=== PATIENT | male | born 2005 | race African-American/Black ===

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

== ENCOUNTER 2024-01-20 20:25 | Emergency (ER) | payer OTHER, SELFPAY ==
[2024-01-20 20:38] VITALS: BP 126/84; PULSE 87; TEMP 36.9; O2SAT 96; BMI 17.3
--- NOTE | 2024-01-20 20:47 | ED_ITS ---
HPI - URI/Sore Throat General Chief Complaint: Upper Respiratory Infection Stated Complaint: CP, DIFF BREATHING, SORE THROAT Time Seen by Provider: 01/20/24 20:28 Source: patient Limitations: no limitations History of Present Illness HPI Narrative: 18-year-old male presents for sore throat and cough. He has been coughing up some yellow phlegm and has had the symptoms for 3 or 4 days. His voice is hoarse as well. He has not had a known fever and has had no hemoptysis. Related Data Home Medications ?Medication ?Instructions ?Recorded ?Confirmed No Known Home Medications 09/07/23 09/07/23 Allergies Allergy/AdvReac Type Severity Reaction Status Date / Time No Known Drug Allergies Allergy Verified 01/20/24 20:38 Review of Systems ROS Narrative A ten point review of systems is negative except as noted above. PFSH PFSH Social History Little interest or pleasure in doing things: not at all Feeling down, depressed, or hopeless: not at all Exam Narrative Exam Narrative: Nurses note and vital signs reviewed and patient is not hypoxic. General: The patient appears well and in no apparent distress. Patient is resting comfortably on cart. Skin: Warm, dry, no pallor noted. There is no rash noted. Head: Normocephalic, atraumatic Eye: Normal conjunctiva, no drainage, EOMI. PERRL Ears, Nose, Mouth, and Throat: oral mucosa is moist. Nares patent. Mouth without vesicles. Minimal pharyngeal erythema without exudate or swelling. His voice is hoarse. Cardiovascular: Regular Rate and Rhythm Respiratory: Patient is in no distress, no accessory muscle use, lungs are clear to auscultation, no wheezing, rales or rhonchi Back: non-tender GI: Soft and nontender Musculoskeletal: No joint swelling Neurological: A&O Psychiatric: Cooperative Constitutional Vital Signs, click to edit/add: Last Vital Signs Temp 98.4 F 01/20/24 20:38 Pulse 87 01/20/24 20:38 Resp 20 01/20/24 20:38 BP 126/84 01/20/24 20:38 Pulse Ox 96 01/20/24 20:38 O2 Del Method Room Air 01/20/24 20:38 Course Vital Signs Vital signs: Vital Signs Temperature 98.4 F 01/20/24 20:38 Pulse Rate 87 01/20/24 20:38 Respiratory Rate 20 01/20/24 20:38 Blood Pressure 126/84 01/20/24 20:38 Pulse Oximetry 96 01/20/24 20:38 Oxygen Delivery Method Room Air 01/20/24 20:38 Temperature 98.4 F 01/20/24 20:38 Pulse Rate 87 01/20/24 20:38 Respiratory Rate 20 01/20/24 20:38 Blood Pressure 126/84 01/20/24 20:38 Pulse Oximetry 96 01/20/24 20:38 Oxygen Delivery Method Room Air 01/20/24 20:38 MDM - URI/Sore Throat MDM Narrative Medical decision making narrative: Strep, COVID, and influenza test are all negative. He was given IM Decadron. Antibiotic not indicated. Treatment diagnosis and follow-up were discussed with the patient. Lab Data Attestation: I reviewed the patient's lab results. Labs: Lab Results 01/20/24 Range/Units 21:00 Influenza Type A Ag Negative Influenza Type B Ag Negative SARS-CoV-2 Ag (CV2AG) Negative (NEGATIVE) Streptococcus Screen Negative Discharge Plan Discharge Chief Complaint: Upper Respiratory Infection Clinical Impression: Viral pharyngitis Patient Disposition: Home, Self-Care Time of Disposition Decision: 21:35 Condition: Good Mode of Transportation: Private Vehicle Prescriptions / Home Meds: No Action No Known Home Medications Print Language: Japanese Instructions: Pharyngitis (ED) Referrals: YOGI LIZAMA [Primary Care Provider] - 1 week
[2024-01-20 21:29] LABS: Influenza Virus A Antigen Negative; Influenza Virus B Antigen Negative; Internal Control Within Normal Limits; Strep A Antigen Screen Negative
[2024-01-20 21:30] LABS: Internal Control Within Normal Limits; SARS-CoV-2 Ag NEGATIVE (NEGATIVE)
[2024-01-20 21:42] VITALS: O2SAT 98
[2024-01-20] MEDS: DEXAMETHASONE SOD PHOS 10 MG/ML VIAL IM (21:45)
== END 2024-01-20 21:52 | disposition home or self-care (01) ==
PROVIDERS: Emergency Provider Emergency Medicine; PCP Family Medicine
DX: J02.9 Acute pharyngitis, unspecified (principal); Z20.822 Contact with and (suspected) exposure to COVID-19
CPT/HCPCS: 87070; 87804; 87811; 87880; 96372; 99284; J1100

== ENCOUNTER 2024-06-17 07:30 | Emergency (ER) | payer OTHER, SELFPAY ==
[2024-06-17 07:37] VITALS: BP 100/66; PULSE 78; TEMP 36.7; O2SAT 100; BMI 17.5
--- NOTE | 2024-06-17 07:44 | ED.GENADUL1 ---
HPI HPI - General Adult General Stated complaint: MEET EYE IRRITATION, PT STATES TROUBLE SEEING Time Seen by Provider: 06/17/24 07:32 Source: patient Mode of arrival: walk-in History of Present Illness HPI narrative: 18-year-old male presents to the emergency department for bilateral eye irritation. He states they were watering today and he woke up this way. He did not have the symptoms last night. 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 The patient however states that at work he uses a cleaning agent and he was told that if he ever gets any in his eyes it will burn them. Last night when he went to bed he did not have any symptoms Related Data Previous Rx's ?Medication ?Instructions ?Recorded ketorolac 0.5 % eye drops (Acular) 1 drp ophthalmic (eye) Q6H PRN 06/17/24 pain #5 mL sulfacetamide sodium 10 % eye drops 2 drp ophthalmic (eye) Q4H #15 mL 06/17/24 Allergies Allergy/AdvReac Type Severity Reaction Status Date / Time No Known Drug Allergies Allergy Verified 06/17/24 07:37 Opioid HPI Opioid Management Most Recent Opioid Data: No Data to Display Review of Systems ROS Narrative A ten point review of systems is negative except as noted above. PFSH PFSH Social History Little interest or pleasure in doing things: not at all Feeling down, depressed, or hopeless: not at all Exam Narrative Exam Narrative: Nurses note and vital signs reviewed and patient is not hypoxic. General: The patient appears in no apparent distress. Skin: Warm, dry, no pallor noted. There is no rash noted. Head: Normocephalic, atraumatic Eye: Both conjunctiva are mildly injected. No periorbital swelling or erythema. Fluorescein stain and Jones lamp examination shows no corneal abrasions. Ears, Nose, Mouth, and Throat: oral mucosa is moist. Nares patent. Cardiovascular: Regular Rate and Rhythm Respiratory: Patient is in no distress, no accessory muscle use, lungs are clear to auscultation, no wheezing, rales or rhonchi Back: non-tender GI: Soft and nontender Musculoskeletal: The patient has no evidence of calf tenderness, no pitting edema, symmetrical pulses noted bilaterally Neurological: A&O, normal speech Psychiatric: Cooperative Constitutional Vital Signs, click to edit/add: Last Vital Signs Temp 98.0 F 04/11/25 07:37 Pulse 78 06/17/24 07:37 Resp 16 06/17/24 07:37 BP 100/66 06/17/24 07:37 Pulse Ox 100 06/17/24 07:37 O2 Del Method Room Air 06/17/24 07:37 Course Vital Signs Vital signs: Vital Signs Temperature 98.0 F 06/17/24 07:37 Pulse Rate 78 06/17/24 07:37 Respiratory Rate 16 06/17/24 07:37 Blood Pressure 100/66 06/17/24 07:37 Pulse Oximetry 100 06/17/24 07:37 Oxygen Delivery Method Room Air 06/17/24 07:37 Temperature 98.0 F 06/17/24 07:37 Pulse Rate 78 06/17/24 07:37 Respiratory Rate 16 06/17/24 07:37 Blood Pressure 100/66 06/17/24 07:37 Pulse Oximetry 100 06/17/24 07:37 Oxygen Delivery Method Room Air 06/17/24 07:37 Medical Decision Making MDM Narrative Medical decision making narrative: My clinical impression is that he has chemical conjunctivitis and he is prescribed Acular and Bleph-10. Treatment diagnosis and follow-up were discussed with the patient. Differential Diagnosis Differential Diagnosis: Chemical conjunctivitis, bacterial conjunctivitis Discharge Plan Discharge Clinical Impression: Acute chemical conjunctivitis Patient Disposition: Home, Self-Care Time of Disposition Decision: 07:57 Condition: Good Mode of Transportation: Private Vehicle Prescriptions / Home Meds: New sulfacetamide sodium 10 % drops 2 drp ophthalmic (eye) Q4H Qty: 15 0RF ketorolac [Acular] 0.5 % drops 1 drp ophthalmic (eye) Q6H PRN (Reason: pain) Qty: 5 0RF Print Language: Hebrew Instructions: How to Use Eye Drops (ED), Conjunctivitis (ED) Referrals: YOGI LIZAMA [Primary Care Provider] - 1 week
--- OUTSIDE RECORDS SUMMARY | 2024-06-17 07:45 | XMS_ITS | CCD ---
Author Organization [facility] Care Team Providers Care Winch Derrick Operator Name Role Phone JAYSHREE CERON Admitting Unavailable JAYSHREE CERON Attending Unavailable JAYSHREE CERON Consulting Unavailable JAYSHREE CEORN Attending Unavailable JAYSHREE CERON Consulting Unavailable JAYSHREE CERON Admitting Unavailable Chun Farmer DO Primary Care Provider Allergies Allergy Classification Reported Allergen(s) Allergy Type Date of Onset Reaction(s) Facility (1 source) Penicillins Propensity to adverse reactions to drug 05-14-2021 [facility] Medications Current Medications Medication Drug Class(es) Dates Sig (Normalized) Sig (Original) ketoconazole 20 mg/ml topical cream (1 source) Azole Antifungal Start: 07-10-2023 ketoconazole (NIZORAL) 2 % cream Apply 1 Application topically in the morning. 15 g 07/10/2023 Active Problems Active Problems Problem Classification Problem Date Documented Date Episodic/Chronic Attention-deficit, conduct, and disruptive behavior disorders (1 source) Attention deficit hyperactivity disorder, combined type; Translations: [Attention-deficit hyperactivity disorder, combined type] Onset: 10-20-2016 10-20-2016 Chronic Immunizations and screening for infectious disease (4 sources) Encounter for immunization; Translations: [ENCOUNTER FOR IMMUNIZATION] Onset: 08-22-2020 Episodic Past or Other Problems Problem Classification Problem Date Documented Da te Episodic/Chronic Mycoses (1 source) Tinea corporis; Translations: [Tinea corporis] 07-10-2023 Episodic Results Test Name Value Interpretation Reference Range Facil ity CHLAMYDIA/NG RNA,TMA, W/RFL ALT TARGET,UROGENon 09-25-2021 CHLAMYDIA TRACHOMATIS RNA, TMA, UROGENITAL Not detected Normal Not Detected [facility] Comment on above: Performed By: #### 9 [id number] #### [facility]/[place] [id number] [facility] [address] [place], [place] Market Gardener: Antoni Elizondo M.D.,PhD #### [id number] #### [facility] [place] [address] Market Gardener: Denys Duarte MD NEISSERIA GONORRHOEAE RNA, TMA, UROGENITAL Not detected Normal Not Detected [facility] Comment on above: Result Comment: Methodology: Airplane Tube Builder Mediated Amplification(TMA) to detect RNA. The analytical performance characteristics of this assay, when used to test SurePath specimens have been determined by [facility]. The modifications have not been cleared or approved by the FDA. This assay has been validated pursuant to the CLIA regulations and is used for clinical purposes. For additional information, please refer to [email or web address] Mobile/faq/RIC447 (This link is being provided for information/educational purposes only). Performed By: #### 9 [id number] #### [facility]/[place] [id number] [facility] [place], [place] Market Gardener: Antoni Elizondo M.D.,PhD #### [id number] #### [facility] [place] [address] Market Gardener: Denys Duarte MD TRICHOMONAS VAGINALIS RNA QU ALITATIVE TMA, MALESon 09-25-2021 TRICHOMONAS VAGINALIS RNA QUALITATIVE TMA, MALES Not detected Normal NOT DETECTED [facility] Comment on above: Result Comment: The analytical performance characteristics of this assay have been determined by [facility]. The modifications have not been cleared or approved by the FDA. This assay has been validated pursuant to the CLIA regulations and is used for clinical purposes. For additional information, please refer to [email or web address] Mobile/ faq/Trichomonastma (This link is being provided for informational/ educational purposes only.) NO COLLECTION DATE RECEIVED. WE HAVE USED THE DATE THE SPECIMEN WAS RECEIVED BY THIS LABORATORY THE COLLECTION DATE. IF THIS IS INCORRECT, PLEASE CONTACT CLIENT SERVICES. PHONE NUMBER: [phone] Performed By: #### 9 [id number] #### [facility] [address] [address] [facility] [address] [place], [place] Market Gardener: Antoni Elizondo M.D.,PhD #### [id number] #### [facility] [address], [address] [place] [address] Market Gardener: Denys Duarte MD CHLAMYDIA/NG RNA,TMA, W/RFL ALT TARGET,UROGENon 09-04-2021 CHLAMYDIA TRACHOMATIS RNA, TMA, UROGENITAL Not detected Normal Not Detected [facility] Comment on above: Performed By: #### 9 1773, [id number], [id number] #### [facility]/[place] [address] [facility] [address] [place] Market Gardener: Antoni Elizondo M.D.,PhD #### 395 #### [facility] [address], [address] [place] [address] Market Gardener: Denys Duarte MD NEISSERIA GONORRHOEAE RNA, TMA, UROGENITAL Detected Abnormal Not Detected [facility] Comment on above: Result Comment: If results do not correlate with clinical findings, testing using an alternate molecular target which amplifies different genetic sequences can be performed on the same sample for result confirmation when requested within 7 days of sample receipt or per performing laboratory specimen retention policy. Alternate target testing is available; [address] (C. trachomatis) [place] [address] (N. gonorrhoeae). Methodology: Airplane Tube Builder Mediated Amplification(TMA) to detect RNA. The analytical performance characteristics of this assay, when used to test SurePath specimens have been determined by [facility]. The modifications have not been cleared or approved by the FDA. This assay has been validated pursuant to the CLIA regulations and is used for clinical purposes. For additional information, please refer to https://education.Lineagen/faq/MGF371 (This link is being provided for information/educational purposes only). Performed By: #### 9 1773, [id number], [id number] #### [facility] [address] [address] [facility] [address] [place] Market Gardener: Antoni Elizondo M.D.,PhD #### 395 #### [facility] [address], [address] [place] [address] Market Gardener: Denys Duarte MD CULTURE, URINE, ROUTINEon CULTURE, URINE, ROUTINE SEE NOTE Normal [facility] Comment on above: Result Comment: CULTURE, URINE, ROUTINE Micro Number: [id number] Test Status: Final Specimen Source: Urine Specimen Quality: Adequate Result: No Growth NO COLLECTION DATE RECEIVED. WE HAVE USED THE DATE THE SPECIMEN WAS RECEIVED BY THIS LABORATORY THE COLLECTION DATE. IF THIS IS INCORRECT, PLEASE CONTACT CLIENT SERVICES. PHONE NUMBER: [phone] Performed By: #### 9 1773, 05725, [id number] #### [facility]/[place] [address] [facility] [place], [place] Market Gardener: Antoni Elizondo M.D.,PhD #### 395 #### [facility] [address], [address] [place] [address] Market Gardener: Denys Duarte MD NEISSERIA GONORRHOEAE,TMA (A LT TARGET),UROGENITALon 09-04-2021 NEISSERIA GONORRHOEAE,TMA (ALT TARGET),UROGENITA L Detected Abnormal [facility] Comment on above: Result Comment: False positive results may occur with any Nucleic Acid Amplified Test. In patients in whom the disease is unlikely, additional testing should be considered after an initial positive result (CDC, MMWR December 2001, Vol.51). Reference range: Not Detected Performed By: #### 9 1773, [id number], [id number] #### [facility] [address] [facility] [place], [place] Market Gardener: Antoni Elizondo M.D.,PhD #### 395 #### [facility] [address], [address] [place] [address] Market Gardener: Denys Duarte MD TRICHOMONAS VAGINALIS RNA QU ALITATIVE TMA, MALESon 09-04-2021 TRICHOMONAS VAGINALIS RNA QUALITATIVE TMA, MALES Not detected Normal Not Detected [facility] Comment on above: Result Comment: Methodology: Airplane Tube Builder Mediated Amplification(TMA) The analytical performance characteristics of this assay have been determined by [facility] [place], [place]. The modifications have not been cleared or approved by the FDA. This assay has been validated pursuant to the CLIA regulations and is used for clinical purposes. For additional information, please refer to http://education.Presentain.Yeeply Mobile/faq/ Trichomonastma (This link is being provided for information/educational purposes only). Performed By: #### 9 1773, 81536, [id number] #### [facility] [address] [facility] [place] [address] Market Gardener: Antoni Elizondo M.D.,PhD #### 395 #### [facility] [address], [address] [place] [id number] Market Gardener: Denys Duarte MD Encounters Encounter Date Encounter Type Care Provider Facility Start: 07-10-2023 End: 07-10-2023 Orders Only Janiya León BULLDOZER ENGINEER-SURVIVAL SPECIALIST Work Phone: [facility] - [facility] Comment on above: Tinea corporis (Prim bryan Dx) Start: 08-22-2020 End: 08-22-2020 ambulatory [facility] Facility:H1 Start: 07-31-2020 End: 08-01-2020 [facility] Facility: Plan of Treatment Date Care Activity Detail Author Start: 12-24-2025 DTaP,Tdap and Td Vaccines (8 - Td or Tdap) DTaP,Tdap and Td Vaccines (8 - Td or Tdap) [facility] Start: 11-08-2023 Influenza vaccination Influenza Vacc ine [facility] Start: 07-04-2023 Adult BMI Screening Adult BMI Screen ing [facility] Start: 07-04-2023 Tobacco Screening Tobacco Screening [facility] Start: 11-07-2022 COVID-19 Vaccine ( season) COVID-19 Vaccine () [facility] Start: 2016 Depression Screening Depression Scre ening [facility] Start: 2004 Tobacco Counseling Tobacco Counselmp bain [facility] Immunizations Immunization Date Immunization Notes Care Provider Fa dinora 01-20-2020 influenza, injectabl e, quadrivalent, contains preservative Janiya Mau BULLDOZER ENGINEER-SURVIVAL SPECIALIST Work Phone: [facility] 01-20-2020 influenza virus vacc ine, unspecified formulation Janiya Mau BULLDOZER ENGINEER-SURVIVAL SPECIALIST Work Phone: [facility] 12-07-2018 Influenza, injectabl e, Madin Elizabeth Canine Kidney, preservative free, quadrivalent Janiya Amu BULLDOZER ENGINEER-SURVIVAL SPECIALIST Work Phone: [facility] 12-29-2017 influenza, injectabl e, quadrivalent, preservative free Janiya Mau BULLDOZER ENGINEER-SURVIVAL SPECIALIST Work Phone: [facility] 12-30-2016 influenza, injectabl e, quadrivalent, preservative free Janiya Mau BULLDOZER ENGINEER-SURVIVAL SPECIALIST Work Phone: [facility] 07-02-2016 Human Papillomavirus 9-valent vaccine Janiya Mau BULLDOZER ENGINEER-SURVIVAL SPECIALIST Work Phone: [facility] 02-25-2016 human papilloma viru s vaccine, quadrivalent Janiya Mau BULLDOZER ENGINEER-SURVIVAL SPECIALIST Work Phone: [facility] 02-25-2016 Human Papillomavirus 9-valent vaccine Janiya Mau BULLDOZER ENGINEER-SURVIVAL SPECIALIST Work Phone: [facility] 12-25-2015 diphtheria, tetanus toxoids and acellular pertussis vaccine Janiya Mau BULLDOZER ENGINEER-SURVIVAL SPECIALIST Work Phone: [facility] 12-25-2015 human papilloma viru s vaccine, quadrivalent Janiya Mau BULLDOZER ENGINEER-SURVIVAL SPECIALIST Work Phone: [facility] 12-25-2015 Human Papillomavirus 9-valent vaccine Janiya Mau BULLDOZER ENGINEER-SURVIVAL SPECIALIST Work Phone: [facility] 12-25-2015 influenza virus vacc ine, unspecified formulation Janiya Mau BULLDOZER ENGINEER-SURVIVAL SPECIALIST Work Phone: [facility] 12-25-2015 influenza, injectable,quadrivalent, preservative free, pediatric Janiya Mau [facility] Work Phone: [facility] 12-25-2015 meningococcal oligosaccharide (groups A, C, Y and W-135) diphtheria toxoid conjugate vaccine (MCV4O) [facility] Work Phone: [facility] 12-25-2015 meningococcal polysaccharide (groups A, C, Y and W-135) diphtheria toxoid conjugate vaccine (MCV4P) [facility] Work Phone: [facility] 12-25-2015 tetanus toxoid, redu long diphtheria toxoid, and acellular pertussis vaccine, adsorbed [facility] Work Phone: [facility] 04-12-2013 influenza virus vacc ine, unspecified formulation [facility] Work Phone: [facility] 04-12-2013 influenza, injectabl e, quadrivalent, preservative free [facility] Work Phone: [facility] 01-14-2011 influenza virus vacc ine, unspecified formulation [facility] Work Phone: [facility] 01-14-2011 influenza, seasonal, injectable Janiya [facility] Work Phone: [facility] 08-09-2009 diphtheria, tetanus toxoids and acellular pertussis vaccine Janiya [facility] Work Phone: [facility] 08-09-2009 Diphtheria, tetanus toxoids and acellular pertussis vaccine, and poliovirus vaccine, inactivated [facility] Work Phone: [facility] 08-09-2009 measles, mumps and rubella virus vaccine Janiya [facility] Work Phone: [facility] 08-09-2009 measles, mumps, rube lla, and varicella virus vaccine Janiya León [facility] Work Phone: [facility] 08-09-2009 poliovirus vaccine, inactivated Janiya León [facility] Work Phone: [facility] 08-09-2009 varicella virus vaccine Makenzie na Mau [facility] Work Phone: [facility] 12-29-2007 influenza virus vacc ine, live, attenuated, for intranasal use Janiya León [facility] Work Phone: [facility] 12-29-2007 influenza virus vacc ine, unspecified formulation [facility] 01-13-2007 hepatitis A vaccine, adult dosage Janiya [facility] Work Phone: [facility] 01-13-2007 hepatitis A vaccine, pediatric/adolescent dosage, 2 dose schedule Janiya Mau [facility] Work Phone: [facility] 01-13-2007 influenza virus vacc ine, unspecified formulation Janiya [facility] Work Phone: [facility] 01-13-2007 influenza, seasonal, injectable, preservative free [facility] Work Phone: [facility] 07-08-2006 hepatitis A vaccine, adult dosage Janiya León [facility] Work Phone: [facility] 07-08-2006 hepatitis A vaccine, pediatric/adolescent dosage, 2 dose schedule Janiya [facility] Work Phone: [facility] 10-28-2005 diphtheria, tetanus toxoids and acellular pertussis vaccine Janiya [facility] Work Phone: [facility] 10-28-2005 haemophilus influenz ae type b vaccine, conjugate unspecified formulation [facility] Work Phone: [facility] 10-28-2005 haemophilus influenz ae type b vaccine, PRP-T conjugate Janiya León [facility] Work Phone: [facility] 10-28-2005 pneumococcal conjuga te vaccine, 7 valent Janiya León [facility] Work Phone: [facility] 06-23-2005 measles, mumps and rubella virus vaccine Janiya León [facility] Work Phone: [facility] 06-23-2005 varicella virus vaccine Makenzie León [facility] Work Phone: [facility] 2004 diphtheria, tetanus toxoids and acellular pertussis vaccine Janiya León [facility] Work Phone: [facility] 2004 diphtheria, tetanus toxoids and acellular pertussis vaccine, unspecified formulation Jainya León [facility] Work Phone: [facility] Work Phone: 2004 haemophilus influenz ae type b vaccine, conjugate unspecified formulation Janiya León [facility] Work Phone: [facility] 2004 hepatitis B vaccine, adult dosage Janiya León [facility] Work Phone: [facility] 2004 hepatitis B vaccine, pediatric or pediatric/adolescent dosage Janiya León [facility] Work Phone: [facility] 2004 Oral Polio Vaccine, Unspecified formulation Janiya León [facility] Work Phone: [facility] 2004 pneumococcal conjuga te vaccine, 7 valent Janiya León [facility] Work Phone: [facility] 2004 poliovirus vaccine, inactivated Janiya Mau [facility] Work Phone: [facility] 2004 diphtheria, tetanus toxoids and acellular pertussis vaccine Janiya León [facility] Work Phone: [facility] 2004 diphtheria, tetanus toxoids and acellular pertussis vaccine, unspecified formulation Janiya León [facility] Work Phone: [facility] 2004 haemophilus influenz ae type b vaccine, conjugate unspecified formulation [facility] Work Phone: [facility] 2004 hepatitis B vaccine, adult dosage [facility] Work Phone: [facility] 2004 hepatitis B vaccine, pediatric or pediatric/adolescent dosage Janiya Mau [facility] Work Phone: [facility] 2004 pneumococcal conjuga te vaccine, 7 valent [facility] Work Phone: [facility] 2004 poliovirus vaccine, inactivated [facility] Work Phone: [facility] 2004 poliovirus vaccine, unspecified formulation Janiya Mau [facility] Work Phone: [facility] 2004 diphtheria, tetanus toxoids and acellular pertussis vaccine, Haemophilus influenzae type b conjugate, and poliovirus vaccine, inactivated ([id number]) [facility] Work [facility] 2004 DTaP-hepatitis B and poliovirus vaccine [facility] Work Phone: [facility] 2004 haemophilus influenz ae type b vaccine, PRP-T conjugate Janiya Mau [facility] Work Phone: [facility] 2004 hepatitis B vaccine, adult dosage [facility] Work Phone: [facility] 2004 pneumococcal conjuga te vaccine, 7 valent Janiya CLEMENS Work Phone: [facility] Payers Date Payer Category Payer Medicaid [employer] [employer] [employer] [id number] 2018-Present [phone] [address] [place] [address] [id number] 1982 Unknown [id number] 1982 Unknown [id number] 1959 Unknown [id number] Social History Date Type Detail Facility Start: [facility]14-2022 [facility] History of tobacco use Tobacco U se Types Packs/Day Years Used Date Smoking Tobacco: Every Day Vaping/E-cigarettes Smokeless Tobacco: Never [facility] Start: 03-14-2022 Tobacco use and exposure Smokeless tobacco non-user [facility] Start: 07-03-2022 Alcoholic beverage intake Ex-drinker (finding) [facility] Start: 03-28-2020 End: 07-03-2022 History of Social function [facility] Start: 03-28-2020 End: 07-03-2022 Tobacco use panel [facility] Childcare Unknown [facility] Start: 09-17-2020 Alcohol Comment occasional [facility] Start: 2004 Sex assigned at Not on file P [facility] History of Present illness Narrative 07-10-2023 SARATH Gonzalez - 07/10/2023 4:06 PM EDT Note Date & Type Note Facility 07-10-2023 History of Presen t illness Narrative Pt's mother sent me pictures of new rash developed in last 1 wk. It it not itchy and has not followed a URI nor has he had any signs of a herald patch before rash started. Will trial anti-fungal cream. SARATH Gonzalez 07/10/23 1609 documented in this encounter [facility] Evaluation note Note Date & Type Note Facility Evaluation note Diagnosis Tinea corporis- Primary Dermatophytosis of the body documented [facility] this encounter [facility] Inst[facility] Note Date & Type Note Facility Instructions Not on filedocumented in this en counter [facility] Summary Purpose Family History No Family History Records FoundNo Family History Records Found Advance Directives No Advanced Directives Records FoundNo Advanced Directives Records Found Additional Source Comments (unrecognized sect ion and content) No Status Records FoundNo Status Records Found INFORMATION SOURCE (unrecogn ized section and content) DATE CREATED AUTHOR 09/29/2020 [facility] DATE CREATED AUTHOR 'S ORGANIZ ATION 09/26/2021 [facility] Care Teams (unrecognized sec tion and content) Winch Derrick Operator Relationship Specialty Start Date End Date Chun Farmer DO [address], [place] [address] PCP - General Family Medicine 03/14/22 FOR RECORDS PERTAINING TO PATIENTS WHO ARE OR HAVE BEEN ENROLLED IN A CHEMICAL DEPENDENCY/SUBSTANCEABUSE PROGRAM, SOME INFORMATION MAY BE OMITTED. This clinical summary was aggregated from multiple sources. Caution should be exercised in using it in the provision of clinical care. This summary normalizes information from multiple sources, and as a consequence, information in this document may materially change the coding, format and clinical context of patient data. In addition, data may be omitted in some cases. CLINICAL DECISIONS SHOULD BE BASED ON THE PRIMARY CLINICAL RECORDS. [employer] provides no warranty or guarantee of the accuracy or completeness of information in this document.
--- NOTE | 2024-06-17 07:55 | PC.NURSE ---
Dr. Pond at bedside for eye exam. flu-bernardo strip provided to Dr. Pond and triny at bedside.
[2024-06-17] MEDS: FLUORESCEIN SODIUM 1 MG STRIP OP (08:05)
== END 2024-06-17 08:09 | disposition home or self-care (01) ==
PROVIDERS: Emergency Provider Emergency Medicine; PCP Family Medicine
DX: H10.213 Acute toxic conjunctivitis, bilateral (principal)
CPT/HCPCS: 99283